=== PATIENT | male | born 1950 | race Caucasian/White ===

== ENCOUNTER 2020-02-15 07:09 | Day surgery (SDC) | payer MEDICARE, OTHER ==
[2020-02-08 11:40] LABS: BASOPHILS # (AUTO) 0.1 X10'3 (0-0.2); BASOPHILS % (AUTO) 1.3 % (0-1); EOSINOPHILS # (AUTO) 0.1 X10'3 (0-0.9); EOSINOPHILS % (AUTO) 1.1 % (0-6); LYMPHOCYTES # (AUTO) 1.6 X10'3 (1.1-4.8); MEAN CORPUSCULAR HEMOGLOBIN 29.4 PG (27.0-31.0); MEAN CORPUSCULAR HGB CONC 33.7 g/dL (33.0-36.5); MEAN CORPUSCULAR VOLUME 87.2 FL (78-98); MEAN PLATELET VOLUME 8.2 FL (7.4-10.4); MONOCYTES # (AUTO) 0.5 X10'3 (0-0.9); MONOCYTES % (AUTO) 8.9 % (2-12); NEUTROPHILS # (AUTO) 3.6 X10'3 (1.8-7.7); NEUTROPHILS % (AUTO) 61.7 % (42-75); PRE OP HEMATOCRIT 51.7 % (42.0-52.0); PRE OP HEMOGLOBIN 17.4 g/dL (14.0-17.9); PRE OP PLATELET COUNT 205 X10'3 (140-440); RED BLOOD COUNT 5.92 X10'6 (4.70-6.10); RED CELL DISTRIBUTION WIDTH 14.7 % (11.5-14.5)
[2020-02-08 11:41] LABS: CLARITY,URINE CLEAR (Clear); COLOR,URINE YELLOW (Yellow); GLUCOSE, URINE NEGATIVE (Neg); KETONES,URINE NEGATIVE (Neg); LEUKOCYTE ESTERASE ,URINE NEGATIVE (Neg); NITRITES, URINE NEGATIVE (Neg); OCCULT BLOOD,URINE SMALL (Neg); PROTEIN,URINE NEGATIVE (Neg); UROBILINOGEN,URINE 0.2 E.U/dL (0.2-1.0)
[2020-02-08 11:43] LABS: UA COLLECTION TYPE CLN CATCH MIDSTREAM
[2020-02-08 11:48] LABS: SQUAMOUS EPITHELIAL CELL,UR FEW /LPF (FEW); WBC,URINE 0-4 /HPF (0-4)
[2020-02-08 11:49] LABS: BACTERIA,URINE FEW /HPF (Neg); MUCUS STRANDS NONE SEEN /LPF (Neg); RBC,URINE 0-2 /HPF (0-2)
[2020-02-08 11:52] LABS: PRE OP PROTIME 10.4 SECONDS (9.0-12.0)
[2020-02-08 12:07] LABS: ALBUMIN 4.2 G/DL (3.4-5.0); ALBUMIN/GLOBULIN RATIO 1.1 (1.1-1.5); ALKALINE PHOSPHATASE 79 IU/L (46-116); BLOOD UREA NITROGEN 16 MG/DL (7-18); BUN/CREATININE RATIO 15.2 (5.4-32.0); CALCIUM 9.6 MG/DL (8.5-10.1); CHLORIDE 105 MMOL/L (99-107); CREATININE 1.05 MG/DL (0.60-1.10); PRE OP ALT 41 U/L (30-65); PRE OP ANION GAP 9 (8-16); PRE OP AST 28 U/L (10-37); PRE OP BILIRUB, TOTAL 0.6 MG/DL (0.0-1.0); PRE OP GLUCOSE 99 MG/DL (70-104); PRE OP POTASSIUM 3.6 MMOL/L (3.4-5.1); PRE OP SODIUM 141 MMOL/L (135-145); TOTAL CARBON DIOXIDE 27.5 MMOL/L (24-32); TOTAL PROTEIN 7.9 G/DL (6.4-8.2); eGFR 70 ML/MIN
[2020-02-15] VITALS (21 sets, daily range): BP systolic 113–165; BP diastolic 60–106
[~2020-02-15] VITALS: Ht 182.9 cm; Wt 107.0 kg
[~2020-02-15 07:09] MED LIST: LANTANOPROST EACHEYE; [UNRECOGNIZED DRUG - OTHER] EACHEYE; acetaminophen 325mg tablet PO PRN; ceFAZolin 2gm in dextrose, iso 50 ML IV ONE; diphenhydrAMINE 25mg capsule PO PRN; famotidine 10mg tablet PO ONE; magnesium hydroxide 30ml (MOM) UD suspension PO PRN; ondansetron/PF 4mg/2ml inj IV PRN; oxyCODONE/APAP 10/325mg tablet PO PRN; ringers solution, lacted 1,000 ML IV SCH
[2020-02-15] MEDS ORDERED: vancomycin 1,000mg inj ONE (09:03)
[2020-02-15] MEDS ORDERED: dexamethasone sod phosphate 10mg/ml inj ONE (09:30)
[2020-02-15] MEDS ORDERED: sevoflurane 250ml liquid IH ONE (09:30)
[2020-02-15] MEDS ORDERED: tranexamic acid 1gm/0.7% sal. 100 ML IV ONE (09:30)
[2020-02-15] MEDS ORDERED: ROPIVAcaine inj 250 MG, ketorolac trometh inj. 30 MG, CloNIDine/PF inj 80 MCG, epiNEPHr... IU ONE ×5 (09:31)
[2020-02-15] MEDS ORDERED: fentaNYL /PF 50mcg/ml 5ml ampule ONE (09:37)
[2020-02-15] MEDS ORDERED: midazolam 2 mg/2 ml injection ONE (09:37)
[2020-02-15] MEDS ORDERED: propofol inj 20 ML IV ONE (09:46)
[2020-02-15] MEDS ORDERED: ondansetron/PF 4mg/2ml inj ONE (09:46)
[2020-02-15] MEDS ORDERED: LIDOcaine 2% (20mg/ml) 5ml vial ONE (09:46)
[2020-02-15] MEDS ORDERED: ROPIVAcaine 0.5% (5mg/ml) 30ml vial ONE (09:48)
[2020-02-15] MEDS ORDERED: ePHEDrine 50MG/ML INJ. ONE (09:57)
[2020-02-15] MEDS ORDERED: labetalol 20mg/4ml (5mg/ml) syringe IV ONE (10:08)
[2020-02-15] MEDS ORDERED: morphine 10mg/ml inj. ONE (10:34)
--- NOTE | 2020-02-15 11:30 | NUR ---
Received from OR via BED, accompanied by Anesthesiologist DR OSBORN and report given by Anesthesiolgist. PATIENT WAKING UP, NO S/S OF PAIN, V/S STABLE, NEUROVASCULAR CHECKS INTACT, 18G PIV LUE, SCD ON, MYCHAL DRESSING TO LEFT KNEE CDI WITH COLD POWDER PACK AND ON Q BALL AT 4ML/HR. BLE ELEVATED
[2020-02-15] MEDS ORDERED: ROPIVAcaine 0.2% (10 MG/5 ML) BOLUS INJECTION ADDCANAL PRN (11:35)
[2020-02-15] MEDS ORDERED: ringers solution, lacted 1,000 ML IV SCH (11:35)
[2020-02-15] MEDS ORDERED: fentaNYL/PF 50MCG/1 ML 2ML syringe IV PRN ×2 (11:35)
[2020-02-15] MEDS ORDERED: labetalol 20mg/4ml (5mg/ml) syringe IV PRN (11:35)
[2020-02-15] MEDS ORDERED: morphine 4 MG/ML inj SYRINge IV PRN (11:35)
[2020-02-15] MEDS ORDERED: morphine 2 MG/ML inj. syringe IV PRN (11:35)
[2020-02-15] MEDS ORDERED: ondansetron/PF 4mg/2ml inj IV PRN (11:35)
[2020-02-15] MEDS ORDERED: hydrALAZINE 20mg/ml inj. IV PRN (11:35)
--- NOTE | 2020-02-15 12:36 | NUR ---
I have received report from TOM COPPOLA [facility] and had the opportunity to ask questions. Will await pts arrival to the O/N floor.
[2020-02-15] MEDS: ROPIVAcaine 0.2%/PF PUMP/bolus 550 ML ADDCANAL SCH (12:38)
[2020-02-15] MEDS ORDERED: HYDROmorphone 1 mg/ml syringe IV PRN (12:50)
[2020-02-15] MEDS ORDERED: bisacodyl 10mg suppository rectal RC PRN (13:00)
[2020-02-15] MEDS ORDERED: HYDROmorphone inj. 0.5 MG/0.5 ML DISP.SYRIN IV PRN (13:00)
[2020-02-15] MEDS ORDERED: TRANEXAMIC ACID 1 GM IN NACL,ISO-OS 100 ML IV ONE (14:30)
[2020-02-15] MEDS ORDERED: tranexamic acid inj. 1,060 MG in normal saline 100ml IV soln 100 ML IV ONE (14:30)
[2020-02-15] MEDS: gabapentin 300mg capsule PO SCH ×2 (15:06→20:58)
[2020-02-15] MEDS: cefazolin/dext.iso 2gm/100ml 100 ML IV SCH (16:04)
[2020-02-15] MEDS: potassium cl 20mEq in 1/2 NS 1,000 ML IV SCH ×2 (16:08→20:45)
[2020-02-15] MEDS: oxyCODONE/APAP 10/325mg tablet PO PRN ×2 (16:47→21:00)
--- NOTE | 2020-02-15 18:34 | NUR ---
Problems reprioritized. Patient report given, questions answered & plan of care reviewed with TOM Jeffers.
[2020-02-15] MEDS ORDERED: VANCOMYCIN 1,500MG inj. 1,500 MG in normal saline 500ml IV soln 500 ML IV SCH (20:00)
[2020-02-15] MEDS: ascorbic acid 500mg tablet PO SCH (20:58)
[2020-02-15] MEDS ORDERED: latanoprost 0.005% 2.5ml ophthalmic drops EACHEYE SCH (21:00)
[2020-02-15] MEDS ORDERED: sennosides 8.6mg tablet PO SCH (21:00)
[2020-02-15] MEDS ORDERED: diphenhydrAMINE 25mg capsule PO PRN (21:00)
[2020-02-16] MEDS: cefazolin/dext.iso 2gm/100ml 100 ML IV SCH (00:31)
[2020-02-16] MEDS: potassium cl 20mEq in 1/2 NS 1,000 ML IV SCH ×2 (02:17→12:45)
[2020-02-16] MEDS: oxyCODONE/APAP 10/325mg tablet PO PRN (05:53)
--- NOTE | 2020-02-16 06:34 | NUR ---
Patient in room [facility] 4007. I have received report from Aury SANTOS and had the opportunity to ask questions and assume patient care.
[2020-02-16 06:57] VITALS: BP 122/86
[2020-02-16 07:00] LABS: BASOPHILS % (AUTO) 0.2 % (0-1); EOSINOPHILS % (AUTO) 0 % (0-6); HEMOGLOBIN 13.9 g/dl (14.0-17.9); LYMPHOCYTES # (AUTO) 0.9 X10'3 (1.1-4.8); LYMPHOCYTES % (AUTO) 8.2 % (21-51); MEAN CORPUSCULAR HEMOGLOBIN 29.5 PG (27.0-31.0); MEAN CORPUSCULAR HGB CONC 33.2 g/dL (33.0-36.5); MEAN CORPUSCULAR VOLUME 88.9 FL (78-98); MEAN PLATELET VOLUME 8.5 FL (7.4-10.4); MONOCYTES # (AUTO) 0.7 X10'3 (0-0.9); MONOCYTES % (AUTO) 6.9 % (2-12); NEUTROPHILS # (AUTO) 9.1 X10'3 (1.8-7.7); NEUTROPHILS % (AUTO) 84.7 % (42-75); PLATELET COUNT 195 X10'3 (140-440); RED BLOOD COUNT 4.73 X10'6 (4.70-6.10); RED CELL DISTRIBUTION WIDTH 14.9 % (11.5-14.5); WHITE BLOOD COUNT 10.8 X10'3 (4.5-11.0)
[2020-02-16 07:09] LABS: ANION GAP 6 (8-16); CHLORIDE 110 MMOL/L (99-107); POTASSIUM 4.2 MMOL/L (3.5-5.1); SODIUM 141 MMOL/L (135-145)
[2020-02-16] MEDS ORDERED: brimonidine 0.2% 5 ML ophthalmic drops EACHEYE SCH (08:00)
[2020-02-16] MEDS ORDERED: multivitamins, therapeutics tablet PO SCH (08:00)
[2020-02-16] MEDS ORDERED: [UNRECOGNIZED DRUG - OTHER] EACHEYE SCH (08:00)
[2020-02-16] MEDS: gabapentin 300mg capsule PO SCH ×2 (08:10→13:06)
[2020-02-16] MEDS: ascorbic acid 500mg tablet PO SCH (08:10)
[2020-02-16] MEDS ORDERED: aspirin 325mg tablet PO SCH (08:30)
[2020-02-16 11:24] VITALS: BP 131/74
[2020-02-16] MEDS: ROPIVAcaine 0.2%/PF PUMP/bolus 550 ML ADDCANAL SCH (13:51)
--- NOTE | 2020-02-16 14:08 | NUR ---
Patient IV taken out at time of discharge, minimal bleeding noted. Patient left after discharge teaching, patient was explained doctors instruction and expressed verbal understanding of teaching. Patient left with all of h is belongings at discharge. Patient left with on Q and bill and will make follow up for two weeks with doctor Edward.
[2020-02-16] MEDS ORDERED: celeCOXIB 100mg capsule PO SCH (20:00)
== END 2020-02-16 14:10 | disposition home or self-care (01) ==
LOC: PAS 07:09 → ORTHO 4S 12:24 → UNDOADMOB 12:24 → ORTHO 4S 16:00 → UNDOADMOB 16:00 → PAS 02-16 14:10 → UNDODISOB 02-16 14:10
PROVIDERS: ATTEND Orthopaedic Surgery
DX: M17.12 Unilateral primary osteoarthritis, left knee (principal); Z20.828 Contact with and (suspected) exposure to other viral communicable diseases; D62 Acute posthemorrhagic anemia
CPT/HCPCS: 27447; 36415; 73560; 80051; 80053; 81001; 82948; 85025; 85610; 85730; 86885; 86900; 86901; 87081; 87635; 93005; 97110; 97112; 97116; 97161; 97530; A6454; C1713; C1776; J1100; J2001; J2250; J2270; J2405; J2704; J2795; J3010; J3370; J7040; J7120; Q0163; A4215; A7000; G0378; J3480; J3490